=== PATIENT | female | born 2000 | race African-American/Black ===

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

== ENCOUNTER 2021-07-01 17:40 | Emergency (ER) | payer OTHER, MEDICAID ==
[~2021-07-01] VITALS: Ht 162.6 cm; Wt 120.2 kg
[~2021-07-01 17:40] MED LIST changes: +NORCO5 PO; +SPIRIVA INH
[2021-07-01 21:10] VITALS: BP 132/67
== END 2021-07-01 21:11 | disposition home or self-care (01) ==
LOC: M.ERS 17:40
DX: R51.9 Headache, unspecified (principal); J45.909 Unspecified asthma, uncomplicated; Z79.899 Other long term (current) drug therapy

== ENCOUNTER 2021-07-31 18:09 | Emergency (ER) | payer OTHER, MEDICAID ==
[~2021-07-31] VITALS: Ht 157.5 cm; Wt 122.5 kg
[2021-07-31] MEDS ORDERED: SPIRIVA18 MCG INH (20:00)
[2021-07-31] MEDS ORDERED: PROAIR HFA8.5 GM INH (20:00)
[2021-07-31] MEDS ORDERED: TESSALON PERLE100 MG PO (20:00)
[2021-07-31 20:12] VITALS: BP 127/69
== END 2021-07-31 20:12 | disposition home or self-care (01) ==
LOC: M.ERS 18:09
DX: U07.1 COVID-19 (principal); J45.909 Unspecified asthma, uncomplicated; Z79.51 Long term (current) use of inhaled steroids; Z79.899 Other long term (current) drug therapy